=== PATIENT | male | born 1935 | race Caucasian/White ===

== ENCOUNTER 2022-08-31 17:13 | Observation (INO) | payer OTHER, MEDICARE, BC ==
--- NOTE | 2022-08-31 18:16 | ED ---
Recheck HPI - General Chief Complaint: Fall Stated Complaint: abnormal labs Time Seen by Provider: 08/31/22 18:15 Source: patient, RN notes reviewed, old records reviewed Mode of arrival: ambulatory Limitations: no limitations - History of Present Illness Initial Comments: This is an 87-year-old male to the emergency department for evaluation patient presents today for evaluation of back pain severe back pain that started a few weeks ago with a fall recently evaluation with computed tomography scan and sent DF for evaluation regarding findings outside computed tomography scan. Patient is no loss of bowel or bladder. Pain is worse with ambulation. MD Complaint: abnormal lab -: hour(s) Returns Today for: Called Because of Abnormal Lab/Test, persistent/worsening pain related to initial visit Symptoms Since Prior Visit: no new symptoms, worsening pain Associated Symptoms: none Treatments Prior to Arrival: Given Pain Meds on - Related Data Home Medications Medication Instructions Recorded Confirmed Acetaminophen Tab [Tylenol] 650 mg PO Q4H PRN 08/31/22 08/31/22 Amiodarone [Cordarone] 200 mg PO DAILY 08/31/22 08/31/22 Ascorbic Acid [Vitamin C] 500 mg PO DAILY 08/31/22 08/31/22 Aspirin EC [Ecotrin Low Dose] 81 mg PO DAILY 08/31/22 08/31/22 Atorvastatin [Lipitor] 80 mg PO DAILY 08/31/22 08/31/22 Budesonide [Pulmicort Flexhaler] 2 puff INHALATION RT-BID 08/31/22 08/31/22 Cholecalciferol [Vitamin D3 (25 25 mcg PO DAILY 08/31/22 08/31/22 Mcg = 1000 Iu)] Furosemide [Lasix] 60 mg PO AC-BRKFST 08/31/22 08/31/22 Isosorbide Mononitrate ER [Imdur] 30 mg PO DAILY 08/31/22 08/31/22 Levalbuterol Hfa Inhaler [Xopenex 2 puff INHALATION RT-Q8H PRN 08/31/22 08/31/22 Hfa Inhaler] Levothyroxine Sodium [Synthroid] 50 mcg PO DAILY 08/31/22 08/31/22 Loratadine [Claritin] 10 mg PO DAILY 08/31/22 08/31/22 Metoprolol Tartrate [Lopressor] 12.5 mg PO BID 08/31/22 08/31/22 Multivit-Mins/Iron/Folic/Lycop 1 tab PO DAILY 08/31/22 08/31/22 [Centrum Men's Tablet] Nitroglycerin Sl Tabs [Nitrostat] 0.4 mg SUBLINGUAL Q5M PRN 08/31/22 08/31/22 Pantoprazole Sodium [Protonix] 40 mg PO DAILY 08/31/22 08/31/22 Potassium Chloride ER [K-Dur 20] 20 meq PO DAILY 08/31/22 08/31/22 Ranolazine [Ranexa] 500 mg PO BID 08/31/22 08/31/22 Sennosides/Docusate Sodium 1 tab PO BID 08/31/22 08/31/22 [Senna-S 8.6-50 mg Tablet] Tamsulosin HCl [Flomax] 0.4 mg PO DAILY 08/31/22 08/31/22 Zolpidem [Ambien] 10 mg PO HS PRN 08/31/22 08/31/22 Allergies Allergy/AdvReac Type Severity Reaction Status Date / Time No Known Allergies Allergy Verified 08/31/22 19:49 Review of Systems ROS Statement: Those systems with pertinent positive or pertinent negative responses have been documented in the HPI. ROS Other: All systems not noted in ROS Statement are negative. Past Medical History Past Medical History: Coronary Artery Disease (CAD) History of Any Multi-Drug Resistant Organisms: None Reported Past Surgical History: Coronary Bypass/CABG, Heart Catheterization With Stent, Pacemaker Additional Past Surgical History / Comment(s): heart valve replacemnt Past Psychological History: No Psychological Hx Reported Past Alcohol Use History: Rare Past Drug Use History: None Reported General Exam Limitations: no limitations General appearance: alert, in no apparent distress Head exam: Present: atraumatic, normocephalic, normal inspection Eye exam: Present: normal appearance, PERRL, EOMI. Absent: scleral icterus, conjunctival injection, periorbital swelling ENT exam: Present: normal exam, mucous membranes moist Neck exam: Present: normal inspection. Absent: tenderness, meningismus, lymphadenopathy Respiratory exam: Present: normal lung sounds bilaterally. Absent: respiratory distress, wheezes, rales, rhonchi, stridor Cardiovascular Exam: Present: regular rate, normal rhythm, normal heart sounds. Absent: systolic murmur, diastolic murmur, rubs, gallop, clicks GI/Abdominal exam: Present: soft, normal bowel sounds. Absent: distended, tenderness, guarding, rebound, rigid Extremities exam: Present: normal inspection, full ROM, normal capillary refill. Absent: tenderness, pedal edema, joint swelling, calf tenderness Back exam: Present: normal inspection Neurological exam: Present: alert, oriented X3, CN II-XII intact Psychiatric exam: Present: normal affect, normal mood Skin exam: Present: warm, dry, intact, normal color. Absent: rash Course Vital Signs 08/31/22 08/31/22 17:55 20:02 Temperature 97.3 F L Pulse Rate 77 72 Respiratory 20 Rate Blood Pressure 115/61 121/65 O2 Sat by Pulse 94 L 95 Oximetry - Reevaluation(s) Reevaluation #1: 08/31/22 18:58 medical record is reviewed Reevaluation #2: 08/31/22 18:58 patients pain is controlled Reevaluation #3: 08/31/22 18:58 patient informed of results and questions answered Reevaluation #4: 08/31/22 18:58 Was pt. sent in by a medical professional or institution? @ -no Did you speak to anyone other than the patient for history? @ -no Did you review nursing and triage notes? @ -agree Were old charts reviewed? @ -no Differential Diagnosis? @ -prior EKG interpreted by me (3pts min.)? @ -yes X-rays interpreted by me (1pt min.)? @ -no CT interpreted by me (1pt min.)? @ -no U/S interpreted by me (1pt. min.)? @ -no What testing was considered but not performed? (CT, X-rays, U/S, labs)? Why? @ -no What meds were considered but not given? Why? @ -no Did you discuss the management of the patient with other professionals? @ -no Did you reconcile home meds? @ -no Was smoking cessation discussed for >3mins.? @ -no Was critical care preformed (if so, how long)? @ -no Were there social determinants of health that impacted care today? How? (Homelessness, low income, unemployed, alcoholism, drug addiction, transportation, low edu. Level, literacy, decrease access to med. care, halfway, rehab)? @ -no Was there de-escalation of care discussed even if they declined? (Discuss DNR or withdrawal of care, Hospice)? @ -no What co-morbidities impacted this encounter? (DM, HTN, Smoking, COPD, CAD, Cance r, CVA, Hep., AIDS, mental health diagnosis, sleep apnea, morbid obesity)? @ -none Was patient admitted / discharged? @ - Undiagnosed new problem with uncertain prognosis? @ -no Drug Therapy requiring intensive monitoring for toxicity (Heparin, Nitro, Insulin, Cardizem)? @ -no Were any procedures done? @ -no Diagnosis/symptom? @ - Acute, or Chronic, or Acute on Chronic? @ -no Uncomplicated (without systemic symptoms) or Complicated (systemic symptoms)? @ -uncomplicated Side effects of treatment? @ -no Exacerbation, Progression, or Severe Exacerbation] @ -no Poses a threat to life or bodily function? @ -no Reevaluation #5: 08/31/22 18:58 Differential Back Pain: Strain, zoster, cauda equina syndrome, epidural abscess, vertebral osteomy elitis, discitis, fracture, subluxation, disc herniation, DJD, spinal stenosis, dissection, AAA, pancreatitis, peptic ulcer disease, pyelonephritis, kidney stone, this is not meant to be an all-inclusive list. Medical Decision Making - Medical Decision Making 87 male presents today for evaluation of fall fall with back pain per patient he may have fracture lumbar sacral fracture and presents for evaluation by orthopedics for fracture and persistent pain. - Lab Data Result diagrams: 08/31/22 19:35 08/31/22 19:35 - EKG Data -: EKG Interpreted by Me (EKG is uncertain 75 QRS 105 QTC 504) Disposition Clinical Impression: Back pain, Chronic back pain, Lumbar compression fracture Disposition: ADMITTED IP TO THIS [facility] Condition: Good Is patient prescribed a controlled substance at d/c from ED?: No Time of Disposition: 19:00
[2022-08-31] MEDS ORDERED: SODIUM CHLORIDE 0.9% 1,000 ML IV STA (18:54)
[2022-08-31] MEDS ORDERED: ONDANSETRON 4 MG/2 ML VIAL IVP PRN (18:54)
[2022-08-31] MEDS ORDERED: NALOXONE 0.4 MG/ML 1 ML VIAL IV PRN (18:54)
[2022-08-31] MEDS ORDERED: KETOROLAC 15 MG/ML 1 ML VIAL IVP STA (18:54)
[2022-08-31] MEDS ORDERED: MORPHINE SULFATE 4 MG/ML SYRINGE IV PRN (18:54)
[2022-08-31] MEDS ORDERED: MORPHINE SULFATE 4 MG/ML SYRINGE IV STA (18:54)
[2022-08-31 19:54] LABS: Basophils % (A) 1 %; Eosinophils # (A) 0.1 k/uL (0-0.7); Eosinophils % (A) 2 %; HCT 39.5 % (39.0-53.0); HGB 12.6 gm/dL (13.0-17.5); Hypochromasia Slight; Lymphocytes # (A) 0.8 k/uL (1.0-4.8); Lymphocytes % (A) 15 %; MCH 33.3 pg (25.0-35.0); MCHC 31.9 g/dL (31.0-37.0); MCV 104.3 fL (80.0-100.0); Macrocytosis Moderate; Mean Platelet Volume 7.4; Monocytes # (A) 0.5 k/uL (0-1.0); Monocytes % (A) 10 %; Neutrophils # (A) 3.6 k/uL (1.3-7.7); Neutrophils % (A) 71 %; Platelet Count 199 k/uL (150-450); RBC 3.79 m/uL (4.30-5.90); RDW 15.1 % (11.5-15.5); WBC 5.1 k/uL (3.8-10.6)
[2022-08-31] MEDS: SODIUM CHLORIDE 0.9% 1,000 ML IV SCH (20:04)
[2022-08-31 20:06] LABS: ALT 29 U/L (4-49); AST 35 U/L (17-59); African American GFR (CKD) >90 (>60 ml/min/1.73 sqM); Albumin 3.5 g/dL (3.5-5.0); Alkaline Phosphatase 154 U/L (38-126); Anion Gap 6 mmol/L; Blood Urea Nitrogen 16 mg/dL (9-20); Calcium 8.6 mg/dL (8.4-10.2); Carbon Dioxide 31 mmol/L (22-30); Chloride 102 mmol/L (98-107); Glucose 99 mg/dL (74-99); Non-African American GFR(CKD) 80 (>60 ml/min/1.73 sqM); Phosphorus 3.8 mg/dL (2.5-4.5); Potassium 4.1 mmol/L (3.5-5.1); Sodium 139 mmol/L (137-145); Total Protein 6.7 g/dL (6.3-8.2)
[2022-08-31 20:24] LABS: INR 1.1 (<1.2); Partial Thromboplastin Time 24.5 sec (22.0-30.0); Prothrombin Time 11.7 sec (9.0-12.0)
[2022-08-31] MEDS ORDERED: NITROGLYCERIN SL TABS 0.4 MG TAB SUBLINGUAL PRN (21:44)
[2022-08-31] MEDS ORDERED: ALBUTEROL NEBULIZED 2.5 MG/3 ML INHALATION PRN (21:44)
[2022-08-31] MEDS ORDERED: ACETAMINOPHEN TAB 325 MG TAB PO PRN (21:48)
[2022-08-31] MEDS: KETOROLAC 15 MG/ML 1 ML VIAL IVP SCH (23:27)
[2022-09-01] MEDS: KETOROLAC 15 MG/ML 1 ML VIAL IVP SCH ×3 (06:09→17:27)
[2022-09-01] MEDS ORDERED: LEVOTHYROXINE 50 MCG TAB PO SCH (06:30)
[2022-09-01] MEDS ORDERED: PANTOPRAZOLE 40 MG TABLET PO SCH (07:30)
[2022-09-01] MEDS: FLUTICASONE 110 MCG INHALER INHALATION SCH ×2 (07:32→21:39)
[2022-09-01] MEDS: SODIUM CHLORIDE 0.9% 1,000 ML IV SCH (08:40)
[2022-09-01] MEDS ORDERED: ASCORBIC ACID 500 MG TAB PO SCH (09:00)
[2022-09-01] MEDS ORDERED: RANOLAZINE 500 MG TAB.ER.12H PO SCH (09:00)
[2022-09-01] MEDS ORDERED: CHOLECALCIFEROL 25 MCG (1000 IU) TABLET PO SCH (09:00)
[2022-09-01] MEDS ORDERED: TAMSULOSIN 0.4 MG CAP.ER.24H PO SCH (09:00)
[2022-09-01] MEDS ORDERED: MULTIVITAMINS, THERA 1 EACH TAB PO SCH (09:00)
[2022-09-01] MEDS ORDERED: AMIODARONE 200 MG TAB PO SCH (09:00)
[2022-09-01] MEDS ORDERED: SENNOSIDES-DOCUSATE SODIUM 1 EACH TAB PO SCH (09:00)
[2022-09-01] MEDS ORDERED: METOPROLOL TARTRATE 12.5 MG TAB PO SCH (09:00)
[2022-09-01] MEDS ORDERED: LORATADINE 10 MG TAB PO SCH (09:00)
[2022-09-01] MEDS ORDERED: ASPIRIN 81 MG PO SCH (09:00)
[2022-09-01] MEDS ORDERED: ISOSORBIDE MONONITRATE ER 30 MG TAB.ER.24H PO SCH (09:00)
[2022-09-01] MEDS ORDERED: ATORVASTATIN 80 MG TAB PO SCH (09:00)
--- NOTE | 2022-09-01 09:13 | P.CNOR ---
History of Present Illness - [facility] Consult date: 09/01/22 Consult reason: low back pain History of present illness: The patient is seen and examined at bedside. He is a very pleasant 87-year-old male who lives on his own with his son right next or checks in on him daily. The patient just returned back from [place] but when he went to take a shower about 4 weeks ago he had a fall and had sudden acute pain at his lower back. The pain has persisted and feels though it had gotten worse and presented to the hospital. He underwent imaging last week at [facility]. He was found to have evidence of a compression deformity and was sent into the hospital. The patient is not having any lower extremity numbness tingling. He is not having change in bowel bladder function. He says the pain is primarily at the midline of his lumbosacral junction and across his lower back. It is particularly bad when he changed physicians and try to sit up at the side of the bed. He is not having pain when seated or when lying down. He denies pain with coughing or sneezing. He denies problems with his back in the past. He says he does have some soreness at his legs when he tries to stand up and walk for significant period time. He denies any new weakness Review of Systems Denies chest pain shortness breath. Denies nausea or vomiting. Denies any fevers chills. He admits to fall several weeks ago. He says he normally gets around home well uses a walker to help get around. He lives on his own at home and feels that he is able to take care of the house but he has family very close by who visits him each day. Past Medical History Past Medical History: Coronary Artery Disease (CAD) Additional Past Medical History / Comment(s): Status post fall about 4 weeks ago with new back pain History of Any Multi-Drug Resistant Organisms: None Reported Past Surgical History: Coronary Bypass/CABG, Heart Catheterization With Stent, Pacemaker Additional Past Surgical History / Comment(s): heart valve replacemnt Date of Last Stent Placement:: n/a Type of Cardiac Device: Permanent Pacemaker Device Placement Date:: n/a Past Psychological History: No Psychological Hx Reported Past Alcohol Use History: Rare Past Drug Use History: None Reported Medications and Allergies Home Medications Medication Instructions Recorded Confirmed Type Acetaminophen Tab [Tylenol] 650 mg PO Q4H PRN 08/31/22 08/31/22 History Amiodarone [Cordarone] 200 mg PO DAILY 08/31/22 08/31/22 History Ascorbic Acid [Vitamin C] 500 mg PO DAILY 08/31/22 08/31/22 History Aspirin EC [Ecotrin Low Dose] 81 mg PO DAILY 08/31/22 08/31/22 History Atorvastatin [Lipitor] 80 mg PO DAILY 08/31/22 08/31/22 History Budesonide [Pulmicort Flexhaler] 2 puff INHALATION RT-BID 08/31/22 08/31/22 History Cholecalciferol [Vitamin D3 (25 25 mcg PO DAILY 08/31/22 08/31/22 History Mcg = 1000 Iu)] Furosemide [Lasix] 60 mg PO AC-BRKFST 08/31/22 08/31/22 History Isosorbide Mononitrate ER [Imdur] 30 mg PO DAILY 08/31/22 08/31/22 History Levalbuterol Hfa Inhaler [Xopenex 2 puff INHALATION RT-Q8H PRN 08/31/22 08/31/22 History Hfa Inhaler] Levothyroxine Sodium [Synthroid] 50 mcg PO DAILY 08/31/22 08/31/22 History Loratadine [Claritin] 10 mg PO DAILY 08/31/22 08/31/22 History Metoprolol Tartrate [Lopressor] 12.5 mg PO BID 08/31/22 08/31/22 History Multivit-Mins/Iron/Folic/Lycop 1 tab PO DAILY 08/31/22 08/31/22 History [Centrum Men's Tablet] Nitroglycerin Sl Tabs [Nitrostat] 0.4 mg SUBLINGUAL Q5M PRN 08/31/22 08/31/22 History Pantoprazole Sodium [Protonix] 40 mg PO DAILY 08/31/22 08/31/22 History Potassium Chloride ER [K-Dur 20] 20 meq PO DAILY 08/31/22 08/31/22 History Ranolazine [Ranexa] 500 mg PO BID 08/31/22 08/31/22 History Sennosides/Docusate Sodium 1 tab PO BID 08/31/22 08/31/22 History [Senna-S 8.6-50 mg Tablet] Tamsulosin HCl [Flomax] 0.4 mg PO DAILY 08/31/22 08/31/22 History Zolpidem [Ambien] 10 mg PO HS PRN 08/31/22 08/31/22 History Allergies Allergy/AdvReac Type Severity Reaction Status Date / Time No Known Allergies Allergy Verified 08/31/22 19:49 Physical Examination Osteopathic Statement: *. No significant issues noted on an osteopathic structural exam other than those noted in the History and Physical/Consult. - L Spine: dermatomal strength & reflexes bilateral Strength: hip flexion: 5/5 (He has bruising over his pelvis toward left. There is open area of burn about 3 x 3 cm from a heating pad. There is no erythema there is no drainage.) left Strength: hip flexion: 5/5 (His lower extremities have 5 out of 5 strength throughout. No pain with internal rotation is hips. Thighs Soft nontender. There is ecchymosis over his left gluteal area.) Results - Labs Labs: Abnormal Lab Results - Last 24 Hours (Table) 08/31/22 08/31/22 Range/Units 19:35 19:35 RBC 3.79 L (4.30-5.90) m/uL Hgb 12.6 L (13.0-17.5) gm/dL MCV 104.3 H (80.0-100.0) fL Lymphocytes # 0.8 L (1.0-4.8) k/uL Carbon Dioxide 31 H (22-30) mmol/L Alkaline Phosphatase 154 H (38-126) U/L H & H 08/31/22 Range/Units 19:35 Hgb 12.6 L (13.0-17.5) gm/dL Hct 39.5 (39.0-53.0) % Coagulation 08/31/22 Range/Units 19:35 INR 1.1 (<1.2) Result Diagrams: 08/31/22 19:35 08/31/22 19:35 - Diagnostic results CT Scan - lumbar: report reviewed (I do not have the report available. There is evidence of severe central and bilateral foraminal stenosis L3 4 L4 5 with facet arthrosis.), image reviewed (Computed tomography scan from 08/24/2022 at [facility] shows his lumbar spine with evidence of compression deformity at L5. There is some lumbarization of S1. There is fracture line at the superior endplate and about 10% height loss. There is some evidence of significant central bilateral for) Assessment and Plan Assessment: Subacute low back pain L4 5 compression fracture with about 10% height loss due to a traumatic fall about 4 weeks ago Spinal stenosis L3 4 L4 5 Difficulty ambulating and mobilizing Superficial burn due to a heating pad at the left lower back Ecchymosis over the gluteal area Plan: Subacute low back pain L5 compression fracture with about 10% height loss due to a traumatic fall about 4 weeks ago Spinal stenosis L3 4 L4 5 Difficulty ambulating and mobilizing Superficial burn due to a heating pad at the left lower back Ecchymosis over the gluteal area The patient has new low back pain due to compression fracture L4. This has made it difficult for him to mobilize and ambulate. The fracture does not appear to be causing any new neurologic change or neurologic deficit. He does have evidence of significant central and bilateral foraminal stenosis at L3 4 and L4 5 which is chronic for him. It had previously been minimally symptomatic although I think the fall and his new injury has exacerbated some of the arthritic and chronic changes to become somewhat symptomatic from his stenosis. We discussed this with him today length and discuss it with his son over the phone at bedside. I think that we need to manage the fracture currently to allow to stabilize before we can address the issues of stenosis. He is not having neurologic F sit or neurologic change. I discussed the different treatment options in regards to his L5 compression fracture. I think that he can do well with an LSO brace for his lower back and continue mobilization with therapy. He may do well with some pain control as well. If he is not doing well with conservative treatment and bracing I did discuss the possibility of kyphoplasty. For now we will like to try to avoid surgical intervention as he does have a open sore at his lower back and with his advanced age. Try to avoid surgical intervention if possible. Kyphoplasty could be an option if he is not having significant improvement, but we'll initiate dedicated conservative treatment at this point and see how he does. We will continue to follow him along with you. I will order an LSO brace and pain control for him. We will also have therapy work with him for mobilization and assess his home situation with case management for potential discharge if his pain is controlled. Time with Patient: Greater than 30
[2022-09-01] MEDS ORDERED: traMADol 50 MG TAB PO PRN (09:15)
[2022-09-01 10:29] LABS: Amorphous Sediment,Urine Rare /hpf; Appearance,Urine Cloudy (Clear); Bilirubin,Urine Negative (Negative); Blood,Urine Negative (Negative); Color,Urine Dark Brown; Glucose,Urine (UA) Negative (Negative); Hyaline Casts,Urine 4 /lpf (0-2); Ketones,Urine Negative (Negative); Leukocyte Esterase,Urine Negative (Negative); Mucus,Urine Many /hpf; Nitrite,Urine Negative (Negative); Protein,Urine 1+ (Negative); RBC,Urine 3 /hpf (0-5); Specific Gravity,Urine 1.031 (1.001-1.035); Urobilinogen,Urine <2.0 mg/dL (<2.0); WBC,Urine 4 /hpf (0-5)
--- NOTE | 2022-09-01 12:04 | P.HPIM ---
History of Present Illness 87-year-old male came in with the sudden onset of lower back pain and the patient is found to have compression of lumbar vertebrae denied any lower extremity weakness or tingling numbness. Patient is on scheduled Toradol with which his symptoms are improved. Patient was evaluated by orthopedic surgery and recommended TLSO brace and if his pain is controlled on tramadol, patient can be discharged. She apparently has history of congestive heart failure Lasix with borderline blood pressure and normal kidney function. REVIEW OF SYSTEMS: CONSTITUTIONAL: No fever, no malaise, no fatigue. HEENT: No recent visual problems or hearing problems. Denied any sore throat. CARDIOVASCULAR: No chest pain, orthopnea, PND, no palpitations, no syncope. PULMONARY: No shortness of breath, no cough, no hemoptysis. GASTROINTESTINAL: No diarrhea, no nausea, no vomiting, no abdominal pain. NEUROLOGICAL: No headaches, no weakness, no numbness. HEMATOLOGICAL: Denies any bleeding or petechiae. GENITOURINARY: Denies any burning micturition, frequency, or urgency. MUSCULOSKELETAL/RHEUMATOLOGICAL: As mentioned above ENDOCRINE: Denies any polyuria or polydipsia. The rest of the 14-point review of systems is negative. PHYSICAL EXAMINATION: GENERAL: The patient is alert and oriented x3, not in any acute distress. Well developed, well nourished. HEENT: Pupils are round and equally reacting to light. EOMI. No scleral icterus. No conjunctival pallor. Normocephalic, atraumatic. No pharyngeal erythema. No thyromegaly. CARDIOVASCULAR: S1 and S2 present. No murmurs, rubs, or gallops. PULMONARY: Chest is clear to auscultation, no wheezing or crackles. ABDOMEN: Soft, nontender, nondistended, normoactive bowel sounds. No palpable organomegaly. MUSCULOSKELETAL: No joint swelling or deformity. EXTREMITIES: No cyanosis, clubbing, or pedal edema. NEUROLOGICAL: Gross neurological examination did not reveal any focal deficits. SKIN: No rashes. Assessment and plan -Compression fracture: TLSO brace, tramadol, meloxicam as needed possibly of discharge with outpatient physical therapy -Coronary artery disease -Possible congestive heart failure although no echocardiogram is available unknown whether patient has systolic dysfunction and diastolic dysfunction presently not in acute exacerbation, patient will be continued on his home medications although his blood pressures are fairly borderline and there is a concern for falls -History of valvular heart disease Benign prostatic hypertrophy -Hyperlipidemia -Hypothyroidism -Possible history of atrial fibrillation presently sinus rhythm, not on anticoagulation because of fall risk Possibility of discharge today Past Medical History Past Medical History: Coronary Artery Disease (CAD) Additional Past Medical History / Comment(s): Status post fall about 4 weeks ago with new back pain History of Any Multi-Drug Resistant Organisms: None Reported Past Surgical History: Coronary Bypass/CABG, Heart Catheterization With Stent, Pacemaker Additional Past Surgical History / Comment(s): heart valve replacemnt Date of Last Stent Placement:: n/a Type of Cardiac Device: Permanent Pacemaker Device Placement Date:: n/a Past Psychological History: No Psychological Hx Reported Past Alcohol Use History: Rare Past Drug Use History: None Reported Medications and Allergies Home Medications Medication Instructions Recorded Confirmed Type Acetaminophen Tab [Tylenol] 650 mg PO Q4H PRN 08/31/22 08/31/22 History Amiodarone [Cordarone] 200 mg PO DAILY 08/31/22 08/31/22 History Ascorbic Acid [Vitamin C] 500 mg PO DAILY 08/31/22 08/31/22 History Aspirin EC [Ecotrin Low Dose] 81 mg PO DAILY 08/31/22 08/31/22 History Atorvastatin [Lipitor] 80 mg PO DAILY 08/31/22 08/31/22 History Budesonide [Pulmicort Flexhaler] 2 puff INHALATION RT-BID 08/31/22 08/31/22 History Cholecalciferol [Vitamin D3 (25 25 mcg PO DAILY 08/31/22 08/31/22 History Mcg = 1000 Iu)] Furosemide [Lasix] 60 mg PO AC-BRKFST 08/31/22 08/31/22 History Isosorbide Mononitrate ER [Imdur] 30 mg PO DAILY 08/31/22 08/31/22 History Levalbuterol Hfa Inhaler [Xopenex 2 puff INHALATION RT-Q8H PRN 08/31/22 08/31/22 History Hfa Inhaler] Levothyroxine Sodium [Synthroid] 50 mcg PO DAILY 08/31/22 08/31/22 History Loratadine [Claritin] 10 mg PO DAILY 08/31/22 08/31/22 History Metoprolol Tartrate [Lopressor] 12.5 mg PO BID 08/31/22 08/31/22 History Multivit-Mins/Iron/Folic/Lycop 1 tab PO DAILY 08/31/22 08/31/22 History [Centrum Men's Tablet] Nitroglycerin Sl Tabs [Nitrostat] 0.4 mg SUBLINGUAL Q5M PRN 08/31/22 08/31/22 History Pantoprazole Sodium [Protonix] 40 mg PO DAILY 08/31/22 08/31/22 History Potassium Chloride ER [K-Dur 20] 20 meq PO DAILY 08/31/22 08/31/22 History Ranolazine [Ranexa] 500 mg PO BID 08/31/22 08/31/22 History Sennosides/Docusate Sodium 1 tab PO BID 08/31/22 08/31/22 History [Senna-S 8.6-50 mg Tablet] Tamsulosin HCl [Flomax] 0.4 mg PO DAILY 08/31/22 08/31/22 History Zolpidem [Ambien] 10 mg PO HS PRN 08/31/22 08/31/22 History Meloxicam [Mobic] 15 mg PO DAILY PRN #30 tab 09/01/22 Rx traMADol HCl [Ultram] 50 mg PO Q6HR PRN 3 Days #12 tab 09/01/22 Rx Allergies Allergy/AdvReac Type Severity Reaction Status Date / Time No Known Allergies Allergy Verified 08/31/22 19:49 Physical Exam Vitals: Vital Signs Temp Pulse Pulse Resp BP BP Pulse Ox 09/01/22 07:00 97.6 F 66 14 106/54 93 L 09/01/22 03:10 97.8 F 70 16 95/55 94 L 09/01/22 02:00 78 18 08/31/22 22:05 97.5 F L 78 18 135/70 97 08/31/22 20:02 72 121/65 95 08/31/22 17:55 97.3 F L 77 20 115/61 94 L Intake and Output 08/31/22 09/01/22 09/01/22 22:59 06:59 14:59 Intake Total 118 Balance 118 Intake: Oral 118 Other: # Voids 1 Weight 95.254 kg Results CBC & Chem 7: 08/31/22 19:35 08/31/22 19:35 Labs: Abnormal Lab Results - Last 24 Hours (Table) 08/31/22 08/31/22 09/01/22 Range/Units 19:35 19:35 10:10 RBC 3.79 L (4.30-5.90) m/uL Hgb 12.6 L (13.0-17.5) gm/dL MCV 104.3 H (80.0-100.0) fL Lymphocytes # 0.8 L (1.0-4.8) k/uL Carbon Dioxide 31 H (22-30) mmol/L Alkaline Phosphatase 154 H (38-126) U/L Urine Protein 1+ H (Negative) Amorphous Sediment Rare H (None) /hpf Hyaline Casts 4 H (0-2) /lpf Urine Mucus Many H (None) /hpf Thrombosis Risk Factor Assmnt - Choose All That Apply Any of the Below Risk Factors Present?: Yes Each Factor Represents 1 point: Obesity (BMI >25) Other Risk Factors: Yes Each Risk Factor Represents 3 Points: Age 75 years or older Other congenital or acquired thrombophilia - If yes, enter type in comment: No Thrombosis Risk Factor Assessment Total Risk Factor Score: 4 Thrombosis Risk Factor Assessment Level: Moderate Risk
--- NOTE | 2022-09-01 12:04 | P.DS ---
Providers Date of admission: 08/31/22 18:57 Attending physician: Yael Potter Consults: 08/31/22 18:54 Consult Physician Routine Consulting Provider: Branden Fields Consult Reason/Comments: backPain Do you want consulting provider notified?: Yes Primary care physician: [facility] Course: 87-year-old male came in with the sudden onset of lower back pain and the patient is found to have compression of lumbar vertebrae denied any lower extremity weakness or tingling numbness. Patient is on scheduled Toradol with which his symptoms are improved. Patient was evaluated by orthopedic surgery and recommended TLSO brace and if his pain is controlled on tramadol, patient can be discharged. She apparently has history of congestive heart failure Lasix with borderline blood pressure and normal kidney function. REVIEW OF SYSTEMS: CONSTITUTIONAL: No fever, no malaise, no fatigue. HEENT: No recent visual problems or hearing problems. Denied any sore throat. CARDIOVASCULAR: No chest pain, orthopnea, PND, no palpitations, no syncope. PULMONARY: No shortness of breath, no cough, no hemoptysis. GASTROINTESTINAL: No diarrhea, no nausea, no vomiting, no abdominal pain. NEUROLOGICAL: No headaches, no weakness, no numbness. HEMATOLOGICAL: Denies any bleeding or petechiae. GENITOURINARY: Denies any burning micturition, frequency, or urgency. MUSCULOSKELETAL/RHEUMATOLOGICAL: As mentioned above ENDOCRINE: Denies any polyuria or polydipsia. The rest of the 14-point review of systems is negative. PHYSICAL EXAMINATION: GENERAL: The patient is alert and oriented x3, not in any acute distress. Well developed, well nourished. HEENT: Pupils are round and equally reacting to light. EOMI. No scleral icterus. No conjunctival pallor. Normocephalic, atraumatic. No pharyngeal erythema. No thyromegaly. CARDIOVASCULAR: S1 and S2 present. No murmurs, rubs, or gallops. PULMONARY: Chest is clear to auscultation, no wheezing or crackles. ABDOMEN: Soft, nontender, nondistended, normoactive bowel sounds. No palpable organomegaly. MUSCULOSKELETAL: No joint swelling or deformity. EXTREMITIES: No cyanosis, clubbing, or pedal edema. NEUROLOGICAL: Gross neurological examination did not reveal any focal deficits. SKIN: No rashes. Assessment and plan -Compression fracture: TLSO brace, tramadol, meloxicam as needed possibly of discharge with outpatient physical therapy -Coronary artery disease -Possible congestive heart failure although no echocardiogram is available unknown whether patient has systolic dysfunction and diastolic dysfunction presently not in acute exacerbation, patient will be continued on his home medications although his blood pressures are fairly borderline and there is a concern for falls -History of valvular heart disease Benign prostatic hypertrophy -Hyperlipidemia -Hypothyroidism -Possible history of atrial fibrillation presently sinus rhythm, not on anticoagulation because of fall risk Possibility of discharge today Patient Condition at Discharge: Good Plan - Discharge Summary Discharge Rx Participant: No New Discharge Prescriptions: New traMADol HCl [Ultram] 50 mg PO Q6HR PRN 3 Days #12 tab PRN Reason: Pain Meloxicam [Mobic] 15 mg PO DAILY PRN #30 tab PRN Reason: Pain Continue Acetaminophen Tab [Tylenol] 650 mg PO Q4H PRN PRN Reason: Fever And/ Or Pain Amiodarone [Cordarone] 200 mg PO DAILY Ascorbic Acid [Vitamin C] 500 mg PO DAILY Aspirin EC [Ecotrin Low Dose] 81 mg PO DAILY Budesonide [Pulmicort Flexhaler] 2 puff INHALATION RT-BID Cholecalciferol [Vitamin D3 (25 Mcg = 1000 Iu)] 25 mcg PO DAILY Furosemide [Lasix] 60 mg PO AC-BRKFST Levalbuterol Hfa Inhaler [Xopenex Hfa Inhaler] 2 puff INHALATION RT-Q8H PRN PRN Reason: Shortness Of Breath Metoprolol Tartrate [Lopressor] 12.5 mg PO BID Multivit-Mins/Iron/Folic/Lycop [Centrum Men's Tablet] 1 tab PO DAILY Pantoprazole Sodium [Protonix] 40 mg PO DAILY Sennosides/Docusate Sodium [Senna-S 8.6-50 mg Tablet] 1 tab PO BID Tamsulosin HCl [Flomax] 0.4 mg PO DAILY Atorvastatin [Lipitor] 80 mg PO DAILY Isosorbide Mononitrate ER [Imdur] 30 mg PO DAILY Levothyroxine Sodium [Synthroid] 50 mcg PO DAILY Loratadine [Claritin] 10 mg PO DAILY Nitroglycerin Sl Tabs [Nitrostat] 0.4 mg SUBLINGUAL Q5M PRN PRN Reason: Chest Pain Potassium Chloride ER [K-Dur 20] 20 meq PO DAILY Ranolazine [Ranexa] 500 mg PO BID Discontinued Zolpidem [Ambien] 10 mg PO HS PRN PRN Reason: Insomnia Discharge Medication List Acetaminophen Tab [Tylenol] 650 mg PO Q4H PRN 08/31/22 [History] Amiodarone [Cordarone] 200 mg PO DAILY 08/31/22 [History] Ascorbic Acid [Vitamin C] 500 mg PO DAILY 08/31/22 [History] Aspirin EC [Ecotrin Low Dose] 81 mg PO DAILY 08/31/22 [History] Atorvastatin [Lipitor] 80 mg PO DAILY 08/31/22 [History] Budesonide [Pulmicort Flexhaler] 2 puff INHALATION RT-BID 08/31/22 [History] Cholecalciferol [Vitamin D3 (25 Mcg = 1000 Iu)] 25 mcg PO DAILY 08/31/22 [History] Furosemide [Lasix] 60 mg PO AC-BRKFST 08/31/22 [History] Isosorbide Mononitrate ER [Imdur] 30 mg PO DAILY 08/31/22 [History] Levalbuterol Hfa Inhaler [Xopenex Hfa Inhaler] 2 puff INHALATION RT-Q8H PRN 08/31/22 [History] Levothyroxine Sodium [Synthroid] 50 mcg PO DAILY 08/31/22 [History] Loratadine [Claritin] 10 mg PO DAILY 08/31/22 [History] Metoprolol Tartrate [Lopressor] 12.5 mg PO BID 08/31/22 [History] Multivit-Mins/Iron/Folic/Lycop [Centrum Men's Tablet] 1 tab PO DAILY 08/31/22 [History] Nitroglycerin Sl Tabs [Nitrostat] 0.4 mg SUBLINGUAL Q5M PRN 08/31/22 [History] Pantoprazole Sodium [Protonix] 40 mg PO DAILY 08/31/22 [History] Potassium Chloride ER [K-Dur 20] 20 meq PO DAILY 08/31/22 [History] Ranolazine [Ranexa] 500 mg PO BID 08/31/22 [History] Sennosides/Docusate Sodium [Senna-S 8.6-50 mg Tablet] 1 tab PO BID 08/31/22 [History] Tamsulosin HCl [Flomax] 0.4 mg PO DAILY 08/31/22 [History] Meloxicam [Mobic] 15 mg PO DAILY PRN #30 tab 09/01/22 [Rx] traMADol HCl [Ultram] 50 mg PO Q6HR PRN 3 Days #12 tab 09/01/22 [Rx] Follow up Appointment(s)/Referral(s): Branden Fields, [Doctor of Osteopathic Medicine] - 2 Weeks (or sooner if patient is having any problems) None,Stated [REFERRING] - 1-2 days Activity/Diet/Wound Care/Special Instructions: LSO brace to be worn when patient is out of bed May remove in bed or may wear in bed if patient wishes May remove for bathing May ambulate as tolerated with brace on Avoid any heavy rigorous activity Avoid any repetitive bending Avoid lifting greater than 15 pounds No overhead work Discharge Disposition: HOME SELF-CARE
[2022-09-01 14:42] VITALS: BP 97/49; PULSE 64; RESP 16; TEMP 97.8
[2022-09-02] MEDS ORDERED: FUROSEMIDE 20 MG TAB PO SCH (07:30)
[2022-09-02] MEDS ORDERED: POTASSIUM CHLORIDE ER 20 MEQ TAB.ER PO SCH (09:00)
== END 2022-09-01 20:00 | disposition home health service (06) ==
LOC: EC 17:13 → 6NMEDSUR 18:57
PROVIDERS: ADMIT Hospitalist; ATTEND Hospitalist
DX: S32.009A Unspecified fracture of unspecified lumbar vertebra, initial encounter for closed fracture (principal); M48.061 Spinal stenosis, lumbar region without neurogenic claudication; W19.XXXA Unspecified fall, initial encounter; I50.9 Heart failure, unspecified; R03.0 Elevated blood-pressure reading, without diagnosis of hypertension; G89.29 Other chronic pain; I25.10 Atherosclerotic heart disease of native coronary artery without angina pectoris; E78.5 Hyperlipidemia, unspecified; E03.9 Hypothyroidism, unspecified; Z91.81 History of falling; N40.0 Benign prostatic hyperplasia without lower urinary tract symptoms; Z95.1 Presence of aortocoronary bypass graft; Z95.5 Presence of coronary angioplasty implant and graft; Z95.0 Presence of cardiac pacemaker; Z95.2 Presence of prosthetic heart valve; Z79.82 Long term (current) use of aspirin; Z79.899 Other long term (current) drug therapy; Z79.1 Long term (current) use of non-steroidal anti-inflammatories (NSAID); Z79.890 Hormone replacement therapy
CPT/HCPCS: 96374; 99285; 93005; 80053; 83735; 84100; 84484; 85025; 85610; 85730; 81001; G0378 ×2; J1885

== ENCOUNTER → 2022-11-02 | Outpatient (CLI) | payer OTHER, MEDICARE, BC ==
[2022-11-02 16:25] LABS: Partial Thromboplastin Time 25.3 sec (22.0-30.0); Prothrombin Time 10.9 sec (9.0-12.0)
[2022-11-02 19:57] LABS: Blood Urea Nitrogen 32.8 mg/dL (9.0-27.0); Carbon Dioxide 34.2 mmol/L (21.6-31.8); Chloride 90 mmol/L (96-109); Glucose 114 mg/dL (70-110); Magnesium 2.4 mg/dL (1.5-2.4); Potassium 3.1 mmol/L (3.5-5.5); Sodium 136 mmol/L (135-145)
[2022-11-03 02:04] LABS: Basophils # (A) 0.05 X 10*3/uL (0.00-0.10); Basophils % (A) 0.8 %; Eosinophils # (A) 0.06 X 10*3/uL (0.04-0.35); Eosinophils % (A) 0.9 %; HCT 43.5 % (39.6-50.0); HGB 14.9 d/dL (13.0-17.0); Lymphocytes # (A) 0.97 X 10*3/uL (0.90-5.00); Lymphocytes % (A) 14.9 %; MCH 32.4 pg (27.0-32.0); MCHC 34.3 d/dL (32.0-37.0); MCV 94.6 FL (80.0-97.0); Mean Platelet Volume 10.2 FL (9.5-12.2); Monocytes # (A) 0.74 X 10*3/uL (0.20-1.00); Monocytes % (A) 11.4 %; NRBC Per 100 WBC 0 X 10*3/uL (0.00-0.01); Neutrophils # (A) 4.66 X 10*3/uL (1.80-7.70); Neutrophils % (A) 71.5 %; Platelet Count 197 X 10*3/uL (140-440); RDW 14.5 % (11.5-14.5); WBC 6.51 X 10*3/uL (4.50-10.00)
== END | disposition home or self-care (01) ==
LOC: LABPAT 14:43
PROVIDERS: ATTEND Orthopaedic Surgery
DX: Z01.818 Encounter for other preprocedural examination (principal); M48.56XA Collapsed vertebra, not elsewhere classified, lumbar region, initial encounter for fracture; I49.8 Other specified cardiac arrhythmias; I45.10 Unspecified right bundle-branch block; R94.31 Abnormal electrocardiogram [ECG] [EKG]
CPT/HCPCS: 80051; 82565; 82947; 83735; 84520; 85025; 85610; 85730; 93005

== ENCOUNTER 2022-11-06 12:57 | Day surgery (SDC) | payer BC, MEDICARE, OTHER ==
--- NOTE | 2022-11-02 17:18 | P.HPOR ---
History of Present Illness H&P Date: 11/02/22 .D:Date: 11/02/22 : 01:30pm .T:Title: [facility] Date of :35 [id number]: NKDA Age: 87 year Height: 5'10" Weight: 182 lbs BMI: 26.11 kg/m2 Occupation: VAS: CHIEF COMPLAINT: Low back pain DOI: DOS: Duration of current treatment regiment: DEL * HISTORY: Xrays New xrays taken in office Trauma or injury No Work-Related No Pain description Dull & aching Location Diffuse Activity Modification Yes Hand Dominance Right TREATMENTS COMPLETED: 6 weeks of PT completed? Month and Year of last PT date? No Physician directed home exercise completed? No Medications Yes, List: Morris, Tramadol, Motrin, Gabapentin, Flexeril Alternative interventions Chiropractic: No Massage therapy:No R.I.C.E: YES Brace:YES LSO, Does not help Injections No RFA:No SUBJECTIVE: Mr. Rangel presents to the office for an evaluation of his low back pain and for surgicla discussion. He states pain in his back that is constant and not getting any better. He is with his son who states about 5 weeks ago he had a fall at home and has been in constant pain ever since. He was seen in ED up in [place] and they treated him with pain meds and an LSO brace which he has been wearing. He states when he sits his pain is a 4 and when he gets up or moves at all its 10/10. He states weakness and numbness in his legs as well which may or maynot be related. 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 But this has limited him extremly. He has tried Morris, Tramadol, Flexeril, Gabapentin without imrpvement. He would like to discuss surgical treatment as the brace is not helping him either. Otherwise the patient denies any f/c/sob/cp, no incision concerns, no bladder or bowel retention/incontinence, no perineal numbness/tingling, and ambulates independently. The patients' past social, medical, family, surgical history, as well as review of systems, have been reviewed. Please refer to the Neurosurgery History and Physical form that has been scanned in to our electronic medical record system. 14 points review of systems completed and as stated in HPI, all other systems reviewed are negative. Social History: Y7Hcraosp: never a smoker P3 Alcohol: none Family History: [id number]: P2 Father: Sibling(s): Past Medical History: Reviewed, see appropriate section of the chart for details. Past Surgical History: Reviewed, see appropriate section of the chart for details. Current Medications: Reviewed, see appropriate section of the chart for details. P1 PHYSICAL EXAMINATION: General: DEL Awake, alert, appropriate for age, in no acute distress. HEENT: DEL No unusual neck masses around region of lateral neck triangle, thyroid, supraclavicular groove Extremities: DELSkin warm and dry without acute lesions, coloration, temperature, skin intact, no tenderness or erythema * Integument: Hairy patches: DEL * ABSENT Dorsal skin dimples: DEL * ABSENT Cafe au lait spots: DEL * ABSENT Surgical incisions: DEL * NONE Palpation: Please see Pain drawing on Intake sheet for further detail. * Midline spinal tenderness: YES at L4 region E6 Cervical Tenderness: No E6 Paralumbar tenderness: YES E6 Parathoracic tenderness: No E6 Buttocks tenderness: No E6 Sacroilliac Tenderness: DEL YES No Laterality: DEL * POSTURAL and MUSCULO-SKELETAL EVALUATION: Coronal Balance: DEL * NEUTRAL Recumbent testing: DEL Patient is * able to lay flat on back Sagittal Balance: DEL * NEUTRAL Shoulder Profile: DEL * LEVEL Pelvic Girdle: DEL * LEVEL Neck ROM: DEL * UNRESTRICTED Lumbar ROM: DEL * RESTRICTED Shoulder ROM: DEL * Symmetrical Hip ROM: DEL * Symmetrical Knee ROM: DEL * Symmetrical Hands: DEL * Normal appearance, symmetrical Feet: DEL * Normal appearance, Symmetrical VASCULAR STATUS : LEFT RIGHT Wrist Pulses * INTACT * INTACT Pedal Pulses (Dors. pedis & post.tibialis) * INTACT * INTACT Color * NORMAL * NORMAL Edema Absent PRESENT Absent PRESENT NEUROLOGIC EXAMINATION: Mental Status:Awake and alert, fully oriented, with normal attention, concentration and memory, and fluent, appropriate speech. Cranial Nerves: I: Olfactory not tested. II: Visual acuity normal, no visual field deficit noted with confrontation. III,IV: Normal pupillary reflexes & intact extraocular movements without nystagmus. V,: Intact symmetrical facial sensation. VII: Intact symmetrical facial motor movement VIII: Hearing intact. IX,X: Intact gag, swallow, & normal voice. XI: Sternocleidomastoid, trapezius function intact. XII: Tongue midline with normal movements. L'hermitte's Sign: DEL Negative / absent Spurling'Sign: DEL Absent bilaterally. Cubital percussion test: DEL Absent bilaterally. Poe-Tinel sign - Carpal region: DEL Absent bilaterally. Straight Leg Raising: DEL Absent bilaterally. * Crossed straight leg raise: DEL negative positive O8 + test in affected leg while raising opposite leg, MORE SPECIFIC than regular straight leg raise MOTOR EXAM (0-5/5, N/T Muscle appearance: DEL *Symmetrical, without signs of atrophy or dystrophy UPPER EXTREMITY RIGHT LEFT Shoulder Abduction *5/5 *5/5 Biceps *07/20 */ Triceps */ *5/5 Wrist Extension */ *5/5 Hand Intrnsics *07/20 */ Artificial Limb Maker *07/20 */ Hand and finger dexterity intact bilaterally? DEL YES NO Disdiadochokinesis examination negative bilaterally? DEL YES NO LOWER EXTREMITY RIGHT LEFT Hip Flexion *4/5 *4/5 Knee Extension */5 *4/5 Knee Flexion */ */5 Dorsiflexion */5 *4/5 Plantarflexion */5 *4/5 EHL */5 *4/5 FHL */5 *4/5 Toe heel walk / heel-toe walk intact while maintaining satisfactory balance? DELYES No Squatting/straightening w/o assistance to a min of 60 degree knee flexion?DEL YES No Single leg stance: DEL INTACT [place] NEG unable to do due to pain REFLEXES(0-4/2, NT)Upper ExtremityLower Extremity Right * 2 * 2 Left * 2 * 2 Pathological Reflexes RIGHT LEFT Poe's Absent PRESENT Absent PRESENT Clonus Absent #BEATS Absent #BEATS Babinski Absent PRESENT Absent PRESENT Sensory system (0-4, N/T) Test type RU TOM RL LL Joint-Position *2 *2 *2 *2 Vibration *2 *2 *2 *2 Pain & LT sense *2 *2 *2 *2 Dermatomal Deficit: * None *None *None *None Gait and Functional Evaluation: Ambulatory aids: DEL Walker Romberg's test: DEL Intact bilaterally *Steady/unsteady Gait RADIOGRAPHIC STUDIES: XRay CAP/L TAP/L Lumbar AP/lateral 2 views LMVP CMV taken at [facility] OF on 11/02/22 of Lumbar Spine: * Images reviewed segmentation difference with sacralization of what woud be L5, CT image read at L5 fracture and so to stay congruent will name level this. L5 compression fracture that has increased progressively since injury with near 50% collapse now from 20% previously. Severe spondylosis through lumbar spine with flattented lordosis. No other fractues evident. AP pelvis shows congruent level pevis w/o fracture CT scancompleted at [facility] Outside facility from *08/24/22 of Lumbar Spine: * Images reviewed from OSH. L5 bust compression type fracture with <20% collapse. No other fractures. IMPRESSION: It was my pleasure to have seen and examined Marcellus. I reviewed the patient's clinical syndrome, physical findings, and imaging studies during the appointment today. It is my impression that the patient has a diagnosis of. 1. L5 compression fracture 50% progressive deformity 2. Low back pain 3. Debility I outlined the natural course history without intervention and various interventional options. PLAN: Based on my findings I suggest the following course of action: -* We discussed all options for treatment at [facility]. They have decided to persue surgical treatment. They understand that Marcellus is a high risk for surgery and post op/perioperative issues related to his age, and multiple comorbid conditions and are willing to assume all the risks of surgery. -Physical Therapy1 -HOMEEX -HEALTHMA -CONTPRO - SMCESSFU - SMCESSNP - WEIGHTLOSSCOUNS - SUPP - EWP PM&R CONSULT UNI - I discussed treatment options with the patient, including operative and non- operative options, and they have elected to proceed with the following surgical procedure: cervical thoracic lumbar BACKSURGT... L5 kyphoplasty with biopsy The indications, risks, benefits, and alternatives to surgery were discussed with the patient and family at length. Specifically (but not limited to) the risks of infection, stiffness, recurrence of symptoms, need for revision surgery, local numbness, neurovascular injury, and blood clots were discussed. The patient's questions were answered.CALL BACK The decision to proceed was made. Consent will be obtained for the procedure. -RXGIVEN MRIAPPTL Brace Fitting knee brace Wear brace as directed while up and about, riding in cars or long walks. Do not wear while sleeping and showering. Liftingreturnact offwork returnwork casemgr DEL -Ambulate daily -Take medications as directed -Ice and rest for pain and swelling control. Spine Surgery Risk Review Mr. Rangel is presenting for evaluation of low back pain, continusous severe, progressive with debility. It was my pleasure to have seen and examined Mr. Rangel. In our visit today we have had a chance to go over subjective complaints, physical examination findings and treatments including the natural course history without intervention and various interventional options. The patients imaging demonstrates: L5 VCF with 50% collapase and progressive deformity. On physical exam, Mr. Rangel demonstrates: severe low back pain, TTP around L5 midline and debility due to fracture and pain. I have explained to the patient that as their condition progresses it will cause further neurological deficits and eventual paralysis. Based on the patients imaging, physical exam, and the rapid progression and disabling nature of their symptoms, at this time I recommend surgery in the form of a: L5 kyphoplasty with biopsy BACKSURGT.... I discussed the risk and benefits of this procedure at length with Mr. Rangel. The patient son agreed to considered pursuing the procedure abovementioned. Prior to surgery, she should follow up with her PCP (Cardio, ID, IM etc) for clearance. Questions were invited and answered, and the patient wishes to proceed as outlined below. Currently, I am recommendin.L5 Kyphoplasty with biopsy 2.Follow up with PCP for surgical clearance 3.Review of surgical risks and benefits as well as an educational packet on the proposed surgical procedure. Risks: All surgical procedures come with inherent risks, including those related to positioning, anesthesia, intraoperative findings, and postoperative complicati ons. It is important to understand that surgery does not come with any guarantee of a successful outcome as complications and adverse events are always possible. The patient was given a handout in office today discussing the surgical procedure and risks associated with the intervention, both of which were discussed with the patient. These risks include but are not limited to the following: * Experiencing same, different or even worse symptoms in back, neck, arms, or legs compared to before surgery. Requiring further surgery or other forms of treatment presently or at some time in the future at same or other levels of the intended spine surgery. On an extreme but fortunately relatively rare basis severe complication such as blindness, stroke, heart attack, temporary and/or permanent nerve injury, paralysis, coma, or may occur, sometimes without known explanation. Surgical complications may include but are not limited to risk of infection, fluid accumulation in the surgical dissection site, including a seroma or hematoma, that requires additional surgery, wound drainage, bleeding, new numbness or weakness, vision changes/loss, spinal fluid leakage, non-healing and/or infected incision, headaches, difficulty or inability to swallow, hoarseness, hemopneumothorax, pneumothorax, impotence, retrograde ejaculation, vaginal dryness; injury to nerves, spinal cord, blood vessels, lymphatics or other vital organs (i.e., bowel injury, injury to the great vessels); heterotopic bone formation; complications related to the hardware such as screws, rods, cages including misplaced hardware, device failure, instrumentation at the wrong spine level, hardware fracture/breakage, or hardware loosening; vertebral failure of the spinal column above or below the newly placed hardware; retained surgical instrumentations or devices and the need for further surgery. * Medical risks of the planned spine surgery include but are not limited to generalized Infections to the whole body or local areas outside of the surgical site (sepsis), heart attack, bleeding, anaphylaxis, meningitis, seizure, epilepsy, hearing loss, burn palacios, laceration of the head or other areas of the body, bruising, hypersensitivity of the skin, bladder over distension; allergic reaction; shoulder injury related to positioning; fat, blood and air clots to other areas of the body like heart, lungs, brain; failure of internal organs such as lungs, kidneys, liver and excessive bleeding. If blood transfusions are necessary, note that transfusions may cause intolerance reactions such as anaphylaxis or other complex reactions. Despite best efforts, the results of spine surgery might not heal in terms of bone, soft tissues such as skin, fascia, ligaments, and joints. Additionally, in order to achieve best possible results, spine surgery may be carried out beyond the initially planned levels and involve decompression, fusion including insertion of hardware at levels other than the original intended area of surgical interest change some portions of the procedure in order to ensure the best possible outcomes. With spine surgery and spinal fusion, there are different off label uses of instrumentation (devices, implants and hardware) as well as biological substances (bone morphogenic proteins, demineralized bone matrix) as well as using extra bone from allograft sources (i.e. cadaver bone) or autograft (iliac crest bone, ribs, or the spine itself). The patient has been given information about these practices and their inherent risks and benefits. [facility] is an educational center that serves as a training facility for neurosurgical and orthopedic CAR BU[employer] and Nursing students. Physician assistants are medically trained surgical providers who function in the outpatient, inpatient, and operating room setting under the direct supervision of the attending surgeon. [facility] has multiple operating rooms with single and overlapping rooms running daily. They currently function under the required guidelines as produced by the [facility] Finance Committee with regards to the overlapping rooms and will continue to comply with changes to this policy as they occur. The requirements include and are complied with as follows: (1) the critical portions of the overlapping rooms will not occur at the same time, (2) the attending physician will be physically present during the critical portions of the procedure and immediately available during the entire case, and (3) a back-up attending is designated should the primary attending not be immediately available. The patient has had a chance to review all the listed information, has been given print outs detailing this information, and has had all his/her questions answered to their satisfaction. It was my pleasure to have seen and examined Mr. Rangel. In our visit today we have had a chance to go over my understanding of our patient's current condition, the natural course history without intervention and various interventional options. Questions were invited and answered, and the patient wishes to proceed as outlined above. I have seen and examined the patient for 25 minutes and we have spent more than 50% of the time in repeat and detailed counseling about the patient's condition, its natural course history with out and as much as can be predicted with surgery and re-review of various surgical treatment options. In conclusion, Mr. Rangel and his son in the room with him requested we proceed with the above suggested surgery and are willing to accept risks and limitations of the suggested surgery as nature of the disease process and our best attempts at treatment for the condition. Thank you again for allowing us to be part of your patient's care. Please don't hesitate to contact me if you have any further questions. Follow-up: 2 weeks PO DEL F/U... 1month 6wks 3 months 6 months 1 year Patient Education: (Informational booklet, instructions, etc) given at today's appointment: CLARIBEL Yes .ED:Patient Education: Y Plan at next visit: CLARIBEL sandy xop X-ray oop Medications Reviewed: YES In our visit today Mr. Rangel and I have had a chance to go over my understanding of the patient's current condition, the natural course history without intervention and various interventional options. Questions were invited and answered, and the patient wishes to proceed as outlined above. I will be sure to keep you updated afterMrJeana Rangel returns here for further follow-up. Thank you again for your referral. Please do not hesitate to contact me if you have any further questions. Signed and authenticated by: LINO Bartholomewon [facility] [address] [place] [id number] This message is confidential, intended only for the named recipient(s) and may contain information that is privileged or exempt from disclosure under applicable law. If you are not the intended recipient(s), you are notified that the dissemination, distribution or copying of this information is strictly prohibited. If you received this message in error, please notify the sender then delete this message. SCRIBE SIGN CC: CLARIBEL REFDR... Past Medical History Past Medical History: Coronary Artery Disease (CAD) Additional Past Medical History / Comment(s): Status post fall about 4 weeks ago with new back pain History of Any Multi-Drug Resistant Organisms: None Reported Past Surgical History: Coronary Bypass/CABG, Heart Catheterization With Stent, Pacemaker Additional Past Surgical History / Comment(s): heart valve replacemnt Date of Last Stent Placement:: n/a Type of Cardiac Device: Permanent Pacemaker Device Placement Date:: n/a Past Psychological History: No Psychological Hx Reported Past Alcohol Use History: Rare Past Drug Use History: None Reported Medications and Allergies Home Medications Medication Instructions Recorded Confirmed Type Acetaminophen Tab [Tylenol] 650 mg PO Q4H PRN 08/31/22 08/31/22 History Amiodarone [Cordarone] 200 mg PO DAILY 08/31/22 08/31/22 History Ascorbic Acid [Vitamin C] 500 mg PO DAILY 08/31/22 08/31/22 History Aspirin EC [Ecotrin Low Dose] 81 mg PO DAILY 08/31/22 08/31/22 History Atorvastatin [Lipitor] 80 mg PO DAILY 08/31/22 08/31/22 History Budesonide [Pulmicort Flexhaler] 2 puff INHALATION RT-BID 08/31/22 08/31/22 History Cholecalciferol [Vitamin D3 (25 25 mcg PO DAILY 08/31/22 08/31/22 History Mcg = 1000 Iu)] Furosemide [Lasix] 60 mg PO AC-BRKFST 08/31/22 08/31/22 History Isosorbide Mononitrate ER [Imdur] 30 mg PO DAILY 08/31/22 08/31/22 History Levalbuterol Hfa Inhaler [Xopenex 2 puff INHALATION RT-Q8H PRN 08/31/22 08/31/22 History Hfa Inhaler] Levothyroxine Sodium [Synthroid] 50 mcg PO DAILY 08/31/22 08/31/22 History Loratadine [Claritin] 10 mg PO DAILY 08/31/22 08/31/22 History Metoprolol Tartrate [Lopressor] 12.5 mg PO BID 08/31/22 08/31/22 History Multivit-Mins/Iron/Folic/Lycop 1 tab PO DAILY 08/31/22 08/31/22 History [Centrum Men's Tablet] Nitroglycerin Sl Tabs [Nitrostat] 0.4 mg SUBLINGUAL Q5M PRN 08/31/22 08/31/22 History Pantoprazole Sodium [Protonix] 40 mg PO DAILY 08/31/22 08/31/22 History Potassium Chloride ER [K-Dur 20] 20 meq PO DAILY 08/31/22 08/31/22 History Ranolazine [Ranexa] 500 mg PO BID 08/31/22 08/31/22 History Sennosides/Docusate Sodium 1 tab PO BID 08/31/22 08/31/22 History [Senna-S 8.6-50 mg Tablet] Tamsulosin HCl [Flomax] 0.4 mg PO DAILY 08/31/22 08/31/22 History Meloxicam [Mobic] 15 mg PO DAILY PRN #30 tab 09/01/22 Rx traMADol HCl [Ultram] 50 mg PO Q6HR PRN 3 Days #12 tab 09/01/22 Rx Allergies Allergy/AdvReac Type Severity Reaction Status Date / Time No Known Allergies Allergy Verified 08/31/22 19:49 Physical Examination Osteopathic Statement: *. No significant issues noted on an osteopathic structural exam other than those noted in the History and Physical/Consult.
[2022-11-05 08:49] VITALS: BMI 25.7
[~2022-11-06 12:57] MED LIST: ACETAMINOPHEN TAB 500 MG TAB PO PRN; GABAPENTIN 300 MG CAP PO PRN; ONDANSETRON 4 MG/2 ML VIAL IVP PRN; TRANEXAMIC 1,000 MG/100ML-NACL 1,000 MG in SALINE 1 100ML.BAG IVPB PRN
[2022-11-06] MEDS ORDERED: LACTATED RINGERS 1,000 ML IV ONE ×2 (13:43→16:26)
[2022-11-06 13:47] LABS: Glucose,Whole Blood 97 mg/dL (70-110)
--- NOTE | 2022-11-06 14:19 | P.PN ---
Progress Note - Text Progress Note Date: 11/06/22 Pt s/e in Pre op area with son at bedside as well as anesthesiologist. Cardiology contacted yesterday and pt is high risk for any procedure. Discussed possibilities including sedation. Anesthesia however needs to have possibility of general if needed should the patient warrant this. Discussed with son and pt at bedside extensively. Explained to them the risks and benefits of sedation vs general and the spectrum of medication used to achieve this. Discussed with them again the possibility of general and if needed the son might have to endure the possibility that if general is needed the ET tube might not be able to come out. Should this happen he would have to make a decision and he understands. The pt also understands as well and pt states he would rather have that be the case than life in constant pain. They understand the risks of this procedure and possible outcomes and they are willing to assume all the risk of surgery at this time. They understand the patients high risk for any procedure, but they still want it done. They are willing to proceed with surgery. Discussed with anesthesiologist who agrees.
[2022-11-06] MEDS ORDERED: MIDAZOLAM 2 MG/2 ML VIAL ONE (14:57)
[2022-11-06] MEDS ORDERED: KETAMINE 10 MG/ML 20 ML VIAL ONE (14:57)
[2022-11-06] MEDS ORDERED: TRANEXAMIC 1,000 MG/100ML-NACL PREMIX BAG ONE (14:57)
[2022-11-06] MEDS ORDERED: LIDOCAINE 2%-EPI 1:100,000 20 ML VIAL SQ ONE ×2 (15:27)
[2022-11-06] MEDS ORDERED: BUPIVACAINE (PF) 0.25% 30 ML VIAL SQ ONE ×2 (15:27)
[2022-11-06] MEDS ORDERED: IOPAMIDOL M200 10 ML VIAL MISCELLANE ONE (15:28)
--- NOTE | 2022-11-06 15:52 | P.OP ---
Date of Procedure: 11/06/22 Preoperative Diagnosis: 1. L5 VCF >50% COMPRESSED 2. LOW BACK PAIN 3. COMPLEX MEDICAL PATIENT Postoperative Diagnosis: 1. L5 VCF >50% COMPRESSED 2. LOW BACK PAIN 3. COMPLEX MEDICAL PATIENT Procedure(s) Performed: 1. L5 KYPHOPLASTY WITH BIOPSY BILATERAL Implants: SUKI Anesthesia: local, other (sedation) Surgeon: Bharat Ledbetter Instrument Room Technician #1: Geremias Yin (THOMAS Lyons Was present and assisted with all aspects of the case from positioning to dressing placement) Estimated Blood Loss (ml): 2 IV fluids (ml): 500 Urine output (ml): 0 Pathology: other (L5) Condition: stable Disposition: PACU Indications for Procedure: Mr. Rangel is presenting for evaluation of low back pain, continusous severe, progressive with debility. It was my pleasure to have seen and examined Mr. Rangel. In our visit today we have had a chance to go over subjective complaints, physical examination findings and treatments including the natural course history without intervention and various interventional options. The patients imaging demonstrates: L5 VCF with 50% collapase and progressive deformity. On physical exam, Mr. Rangel demonstrates: severe low back pain, TTP around L5 midline and debility due to fracture and pain. I have explained to the patient that as their condition progresses it will cause further neurological deficits and eventual paralysis. Based on the patients imaging, physical exam, and the rapid progression and disabling nature of their symptoms, at this time I recommend surgery in the form of a: L5 kyphoplasty with biopsy BACKSURGT.... I discussed the risk and benefits of this procedure at length with Mr. Rangel. The patient son agreed to considered pursuing the procedure abovementioned. Prior to surgery, she should follow up with her PCP (Cardio, ID, IM etc) for clearance. Questions were invited and answered, and the patient wishes to proceed as outlined below. Currently, I am recommendin.L5 Kyphoplasty with biopsy Description of Procedure: kYPHOPLASTY L5 The patient was seen and examined in the preoperative area. All preoperative protocols were followed. Informed consent was obtained, risks and benefits of the procedure were discussed at length. Risks including bleeding infection damage to the surrounding tissue and risk of re-operation were discussed with the patient. Risk of anesthesia up to and including was discussed with the patient. These are outlined in the risk review. They were willing to accept these risks and all the risks of surgery. The patient was given a weight-based dose of antibiotics in the form of 2 g Ancef. The patient was seen and evaluated by the anesthesia team who deemed them fit for surgery. The site was marked, the patient was willing to proceed with the procedure. The patient was transferred to the operative suite by the Department of anesthesia. They were then drifted off to sleep by the department anesthesia and SEDATION was performed. The patient tolerated this well. Once confirmation of lines and ventilation the patient was transferred to a prone Suman table very carefully. All bony prominences including wrists, elbows, axilla, chest, hips, and thighs, and feet were padded very well. Special attention was paid to the genitalia, and these were padded accordingly. SCDs were placed on bilateral lower extremities and were connected. Arms were well padded and placed on arm boards up and out in the 90/90 position. Once in position, again we confirmed good ventilation capabilities and that lines were running appropriately. The patients Lumbar spine was then exposed. 1010s were placed outlining the incision site. Standard alcohol was used to clean the incision site and allowed to dry. C-arm was used to needle localize the pedicles at T12 and bio-nereyda the patient and confirm level for incision which was marked with a skin marker. Operative briefing was performed with all teams and everyone in agreement to proceed. The patient was then prepped and draped in a normal sterile fashion. Timeout was then performed, and all parties agreed with the procedure to be performed. Local anesthetic was given in the skin and soft tissue over the incision to be made b/l at L5 localized with fluoroscopy. Skin marycruz was made. Jamshitdis was passed into the L5 vertebral body via the pedicle bilaterally. This was done with biplane fluoroscopy. Once in good position in the body the trochar removed. Biopsy needle was passed into the body and biopsy taken. Drill was then passed and biopsy material taken from drill as well. Curette used to make space and reduce the fracture. Balloon was then passed an inflated which showed reduction of endplate on AP and Lateral and confirmed central placement. Cement was then placed bilaterally under flouroscopic guidance. Good fill of cement was seen without extravasation. Pt remained stable through process. Once good fill, the Jamshedi was removed and the wound irrigated. AP and lateral confirmed good reduction of the fracture and good cement fill. The skin was closed with a simple stitch and dressed with glue and a bandaid. The patient was then transferred off the table back to their hospital bed a- traumatically. They were extubated by the department of anesthesia. They were then transferred to PACU in stable condition having tolerated the procedure with no complications.
--- NOTE | 2022-11-06 16:15 | XR ---
Intraoperative/procedural fluoroscopic services were provided for L5 kyphoplasty. Total fluoroscopy t penny is 1:26 minutes with a total of 3 submitted images to PACS. Total DAP 8.3903 Gycm2. Please see t he operative note for further details.
[2022-11-06] MEDS ORDERED: LACTATED RINGERS 1,000 ML IV SCH (16:30)
[2022-11-06 16:33] LABS: Glucose,Whole Blood 110 mg/dL (70-110)
[2022-11-06] MEDS ORDERED: ACETAMINOPHEN TAB 500 MG TAB PO PRN (18:11)
[2022-11-06] MEDS ORDERED: SODIUM CHLORIDE 0.9% 1,000 ML IV SCH (18:15)
[2022-11-06 19:26] VITALS: RESP 18
[2022-11-07] MEDS ORDERED: DEXTROSE 50% SYRINGE 50 ML IVP PRN ×2 (01:57)
--- NOTE | 2022-11-07 02:01 | P.CONS ---
History of Present Illness - Reason for Consult Consult date: 11/06/22 perioperative medical management - History of Present Illness 87 year old male with hypertension , CAD Patient is very hard of hearing and provides very limited history. He came in for chronic low back pain for scheduled kyphoplasty he tolerated the chair well no observed immediate postoperative complications he currently denies any chest pain trouble breathing denies any new onset focal neuro deficits denies any uri nary changes. He tolerated by mouth intake denies any nausea vomiting or abdominal pain review of systems Pertinent positives as noted in HPI. All other systems were reviewed and are negative on exam Constitutional: No acute distress, conversant, very hard of hearing Eyes: Anicteric sclerae, moist conjunctiva, Pupils equal round reactive to light ENMT: NC/AT Oropharynx clear, no erythema, or exudates Neck: Supple, no masses, or JVD No carotid bruits No thyromegaly Lungs: Clear to auscultation Clear to percussion Normal respiratory effort, no accessory muscle use Cardiovascular: Heart regular in rate and rhythm, No murmurs, gallops, or rubs No peripheral edema Abdominal: Soft Nontender, no guarding, rebound or rigidity Abdomen moving with respiration Normoactive bowel sounds No hepatomegaly, No splenomegaly No palpable mass No abdominal wall hernia noted Extremities: No digital cyanosis No clubbing Pedal pulses intact and symmetrical Radial pulses intact and symmetrical No calf tenderness Psychiatric: Alert and oriented to person, place Neuro Muscles Strength 4/5 in all 4 extremities Sensation to light touch grossly present throughout Cranial nerves II-XII grossly intact Lymphatics: no palpable cervical or supraclavicular lymph nodes Past Medical History Past Medical History: Coronary Artery Disease (CAD), Chest Pain / Angina, Heart Failure, GERD/Reflux, Hyperlipidemia, Respiratory Disorder, Thyroid Disorder Additional Past Medical History / Comment(s): hx of fall with lumbar compression fx., son states mix up in his meds and he was taking double lasix and became dehydrated and had 2-3 more falls possibly from dehydration., constipation, pacemaker, states he is not diabetic (on Jardiance). History of Any Multi-Drug Resistant Organisms: None Reported Past Surgical History: Coronary Bypass/CABG, Heart Catheterization With Stent, Pacemaker Additional Past Surgical History / Comment(s): heart valve replacement, cabg (5) over 25 yrs ago, total of 3 cardiac stents (last stent approx. 4 yrs ago). Past Anesthesia/Blood Transfusion Reactions: No Reported Reaction Date of Last Stent Placement:: 2018? Type of Cardiac Device: Permanent Pacemaker Device Placement Date:: unknown Past Psychological History: No Psychological Hx Reported Smoking Status: Former smoker, Unknown if ever smoked Past Alcohol Use History: None Reported Additional Past Alcohol Use History / Comment(s): quit smoking 50 years ago. Past Drug Use History: None Reported Medications and Allergies Home Medications Medication Instructions Recorded Confirmed Type Aspirin EC [Ecotrin Low Dose] 81 mg PO DAILY 08/31/22 11/06/22 History Isosorbide Mononitrate ER [Imdur] 30 mg PO DAILY 08/31/22 11/06/22 History Levothyroxine Sodium [Synthroid] 50 mcg PO DAILY 08/31/22 11/06/22 History Loratadine [Claritin] 10 mg PO DAILY 08/31/22 11/06/22 History Metoprolol Tartrate [Lopressor] 12.5 mg PO BID 08/31/22 11/06/22 History Nitroglycerin Sl Tabs [Nitrostat] 0.4 mg SUBLINGUAL Q5M PRN 08/31/22 11/06/22 History Pantoprazole Sodium [Protonix] 40 mg PO DAILY 08/31/22 11/06/22 History Albuterol Inhaler [Ventolin Hfa 1 - 2 puff INHALATION Q4-6H PRN 11/05/22 11/06/22 History Inhaler] Amiodarone [Cordarone] 200 mg PO BID 11/05/22 11/06/22 History Ascorbic Acid [Vitamin C] 500 mg PO DAILY 11/05/22 11/06/22 History Atorvastatin [Lipitor] 80 mg PO DAILY 11/05/22 11/06/22 History Cholecalciferol [Vitamin D3 (25 50 mcg PO DAILY 11/05/22 11/06/22 History Mcg = 1000 Iu)] Docusate [Colace] 100 mg PO BID 11/05/22 11/06/22 History Empagliflozin [Jardiance] 10 mg PO DAILY 11/05/22 11/06/22 History Fluticasone Nasal [place] [Flonase 2 spray EA NOSTRIL DAILY 11/05/22 11/06/22 History Nasal [place]] Furosemide [Lasix] 80 mg PO DAILY 11/05/22 11/06/22 History Lidocaine 5% Patch [Lidoderm] 1 patch TOPICAL DAILY 11/05/22 11/06/22 History Magnesium Oxide [Mag-Ox] 420 mg PO DAILY 11/05/22 11/06/22 History Mometasone 200mcg 2 puff INHALATION BID 11/05/22 History Multivitamins, Thera [Multivitamin 1 tab PO DAILY 11/05/22 11/06/22 History (formulary)] Naproxen [Naprosyn] 375 mg PO Q12HR 11/05/22 11/06/22 History Potassium Chloride 10 meq PO BID 11/05/22 11/06/22 History Ranolazine [Ranolazine ER] 500 mg PO Q12HR 11/05/22 11/06/22 History Tamsulosin [Flomax] 0.4 mg PO DAILY 11/05/22 11/06/22 History Vitamin D3 (Unknown Dose) 1 dose PO DAILY 11/05/22 11/06/22 History guaiFENesin [Mucinex] 600 mg PO Q12H 11/05/22 11/06/22 History metOLazone [Zaroxolyn] 2.5 mg PO BID 11/05/22 11/06/22 History traZODone HCL 100 mg PO HS 11/05/22 11/06/22 History traMADol HCl [Ultram] 50 mg PO Q6H PRN #12 tab 11/06/22 Rx Allergies Allergy/AdvReac Type Severity Reaction Status Date / Time No Known Allergies Allergy Verified 11/06/22 13:51 Physical Exam Vitals: Vital Signs Temp Pulse Resp BP Pulse Ox 11/07/22 00:05 97.7 F 58 L 18 103/61 97 11/06/22 19:05 98.0 F 61 18 143/72 97 11/06/22 18:30 60 16 113/62 100 11/06/22 18:15 61 16 122/61 100 11/06/22 18:00 59 L 16 119/64 100 11/06/22 17:45 60 16 104/51 99 11/06/22 17:30 61 16 118/55 97 11/06/22 17:15 60 16 91/43 99 11/06/22 17:00 60 16 119/54 100 11/06/22 16:45 60 17 115/58 100 11/06/22 16:33 60 18 104/50 100 08/22/23 16:18 63 12 104/62 100 11/06/22 16:03 59 L 22 95/45 94 L 11/06/22 15:48 97.4 F L 80 20 113/55 96 11/06/22 14:03 96.7 F L 61 20 135/63 97 Intake and Output 11/06/22 11/06/22 11/07/22 14:59 22:59 06:59 Intake Total 1650 Output Total 2 Balance 1648 Intake: IV 1650 Output: Estimated Blood Loss 2 Other: Weight 87 kg Results CBC & Chem 7: 11/06/22 13:42 Assessment and Plan Assessment: Status post kyphoplasty postoperative day 0 Postoperative care per orthopedic team Chronic conditions Hypertension, continue with mid to upper lobe Coronary artery disease, continue statin, Imdur, amiodarone Hypothyroid continue with levothyroxine Diabetes mellitus, insulin sliding scale Check a.m. labs CBC and CMP Stable from medical standpoint Thank you for this consultation
[2022-11-07] MEDS ORDERED: LEVOTHYROXINE 50 MCG TAB PO SCH (06:30)
[2022-11-07] MEDS ORDERED: fentaNYL (PF) 50 MCG/ML 2 ML AMP IV PRN (07:00)
[2022-11-07] MEDS ORDERED: PANTOPRAZOLE 40 MG TABLET PO SCH (07:30)
[2022-11-07] MEDS ORDERED: INSULIN ASPART (NovoLOG) 100 UNIT/ML VIAL SQ SCH (07:30)
[2022-11-07 08:41] LABS: Glucose,Whole Blood 138 mg/dL (70-110)
[2022-11-07] MEDS ORDERED: TAMSULOSIN 0.4 MG CAP.ER.24H PO SCH (09:00)
[2022-11-07] MEDS ORDERED: ISOSORBIDE MONONITRATE ER 30 MG TAB.ER.24H PO SCH (09:00)
[2022-11-07] MEDS ORDERED: AMIODARONE 200 MG TAB PO SCH (09:00)
[2022-11-07] MEDS ORDERED: ATORVASTATIN 80 MG TAB PO SCH (09:00)
[2022-11-07] MEDS ORDERED: RANOLAZINE 500 MG TAB.ER.12H PO SCH (09:00)
[2022-11-07] MEDS ORDERED: METOPROLOL TARTRATE 12.5 MG TAB PO SCH (09:00)
[2022-11-07] MEDS ORDERED: ASPIRIN 81 MG PO SCH (09:00)
[2022-11-07 09:55] VITALS: BP 106/62; PULSE 61; TEMP 98.3
--- NOTE | 2022-11-07 10:08 | P.PN ---
Subjective Progress Note Date: 11/07/22 Principal diagnosis: 1. L5 vertebral compression fracture greater than 50% compressed 2. Low back pain 3. Complex medical patient Patient seen and examined this morning. Patient is resting comfortably in bed. Patient reports that his pain is managed on current regimen. Patient was able to reposition himself to the side of the bed to sit at bedside table to eat breakfast. Patient reports that he is ready to go home today. No acute events overnight. Objective - Vital Signs Vital signs: Vital Signs Temp 97.7 F 11/07/22 00:05 Pulse 58 L 11/07/22 00:05 Resp 18 11/07/22 00:05 BP 103/61 11/07/22 00:05 Pulse Ox 97 11/07/22 00:05 FiO2 Intake & Output 11/06/22 11/07/22 11/07/22 18:59 06:59 18:59 Intake Total 1650 Output Total 2 Balance 1648 Weight 87 kg 87 kg Intake: IV 1650 Output: Estimated Blood Loss 2 Other: Voiding Method Toilet - Exam Physical Examination General: The patient is awake and alert, in no acute distress Skin: Skin is warm and dry with no obvious rashes or lesions. Surgical puncture site at the lumbar region, Band-Aid is present Eye: Pupils are equal, round and reactive to light, extra-ocular movements are i ntact; there is normal conjunctiva bilaterally. Neck: The neck is supple, there is no tenderness and ROM intact. Cardiovascular: There is a regular rate and rhythm. No murmur, rub or gallop is appreciated. Respiratory: Lungs are clear to auscultation, respirations are non-labored, breath sounds are equal. Gastrointestinal: Soft, non-distended, non-tender abdomen. Back: There is no tenderness to palpation in the midline, paralumbar, parathoracic or buttocks region. There is no obvious deformity . Musculoskeletal: ROM limited secondary to pain and stiffness from surgical procedure. Muscle strength in all major muscle groups of bilateral upper extremities 5/5, bilateral lower extremities 4/5. Neurological: CN 2-12 intact. There are no obvious motor or sensory deficits. Movement and coordination equal and intact. Sensory exam to light touch intact C5-T1 and intact from L2-S1. Reflexes 2/4 in bilateral upper and lower extremities. Negative Hoffmans, babinski, and clonus signs. Psychiatric: Cooperative, appropriate mood & affect, normal judgment. - Labs CBC & Chem 7: 11/06/22 13:42 Assessment and Plan Assessment: Postop day 1: L5 kyphoplasty 1. L5 vertebral compression fracture greater than 50% compressed 2. Low back pain 3. Complex medical patient Plan: -Appreciate solutions architect consultant and team management. -Activity: Ambulate QID, OOB all meals, up and about, limit lifting bending twisting to less than 5 lbs. Use walker or cane if needed for stability. -Pain control: Adequate at this time -Meds: reviewed -GI ppx: senna, Miralax -DVT PPX: Mechanical -Encourage IS 10x/hr -Dispo: Discharge home today 11/07/2022 *I reviewed and discussed this case with my attending Dr. Ledbetter, whom has reviewed this chart and films and is in agreement with assessment and plan of care as outlined above. I have personally seen and examined the patient, performed the documentation and the assessment and plan as written. Number of minutes spent on the visit: 15m.
--- NOTE | 2022-11-07 10:09 | P.DS ---
Providers Date of admission: 11/06/22 Expected date of discharge: 11/07/22 Attending physician: Bharat Ledbetter DO Consults: 11/06/22 20:08 Consult Physician Routine Consulting Provider: Nataliia Gillespie Consult Reason/Comments: Medical Management Do you want consulting provider notified?: Yes Primary care physician: [facility] Course: Hospital Course: The patient was evaluated preoperatively and found to have the diagnosis of L5 compression fracture. They underwent appropriate preoperative care and were willing to undergo the intended procedure. They underwent a successful L5 kyphoplasty, were recovered appropriately and sent to the floor. While on the floor they worked with physical therapy, occupational therapy and nursing to enhance their recovery experience. Their pain was well controlled through their stay and they were started on appropriate medications, DVT ppx modalities, activity and dietary needs. Daily labs were monitored closely, and transfusions were only used when necessary. Medicine as well as other consulting services have made their input and have helped with our team approach and mul tidisciplinary care. PT milestones have been met and passed and they have made the recommendation of home for this patient and treating providers agree with this care path. The patient will be discharged home with appropriate medications, instructions and follow-up information and in stable condition. Patient Condition at Discharge: Good Plan - Discharge Summary Discharge Rx Participant: Yes New Discharge Prescriptions: New traMADol HCl [Ultram] 50 mg PO Q6H PRN #12 tab PRN Reason: Pain No Action Aspirin EC [Ecotrin Low Dose] 81 mg PO DAILY Metoprolol Tartrate [Lopressor] 12.5 mg PO BID Pantoprazole Sodium [Protonix] 40 mg PO DAILY Furosemide [Lasix] 80 mg PO DAILY Albuterol Inhaler [Ventolin Hfa Inhaler] 1 - 2 puff INHALATION Q4-6H PRN PRN Reason: Shortness Of Breath metOLazone [Zaroxolyn] 2.5 mg PO BID Vitamin D3 (Unknown Dose) 1 dose PO DAILY Multivitamins, Thera [Multivitamin (formulary)] 1 tab PO DAILY Tamsulosin [Flomax] 0.4 mg PO DAILY Amiodarone [Cordarone] 200 mg PO BID Cholecalciferol [Vitamin D3 (25 Mcg = 1000 Iu)] 50 mcg PO DAILY Ascorbic Acid [Vitamin C] 500 mg PO DAILY traZODone HCL 100 mg PO HS Naproxen [Naprosyn] 375 mg PO Q12HR Ranolazine [Ranolazine ER] 500 mg PO Q12HR Lidocaine 5% Patch [Lidoderm] 1 patch TOPICAL DAILY Docusate [Colace] 100 mg PO BID Empagliflozin [Jardiance] 10 mg PO DAILY guaiFENesin [Mucinex] 600 mg PO Q12H Isosorbide Mononitrate ER [Imdur] 30 mg PO DAILY Levothyroxine Sodium [Synthroid] 50 mcg PO DAILY Loratadine [Claritin] 10 mg PO DAILY Nitroglycerin Sl Tabs [Nitrostat] 0.4 mg SUBLINGUAL Q5M PRN PRN Reason: Chest Pain Potassium Chloride 10 meq PO BID Magnesium Oxide [Mag-Ox] 420 mg PO DAILY Fluticasone Nasal [place] [Flonase Nasal [place]] 2 spray EA NOSTRIL DAILY Mometasone 200mcg 2 puff INHALATION BID Atorvastatin [Lipitor] 80 mg PO DAILY Discharge Medication List Aspirin EC [Ecotrin Low Dose] 81 mg PO DAILY 08/31/22 [History] Isosorbide Mononitrate ER [Imdur] 30 mg PO DAILY 08/31/22 [History] Levothyroxine Sodium [Synthroid] 50 mcg PO DAILY 08/31/22 [History] Loratadine [Claritin] 10 mg PO DAILY 08/31/22 [History] Metoprolol Tartrate [Lopressor] 12.5 mg PO BID 08/31/22 [History] Nitroglycerin Sl Tabs [Nitrostat] 0.4 mg SUBLINGUAL Q5M PRN 08/31/22 [History] Pantoprazole Sodium [Protonix] 40 mg PO DAILY 08/31/22 [History] Albuterol Inhaler [Ventolin Hfa Inhaler] 1 - 2 puff INHALATION Q4-6H PRN 11/05/22 [History] Amiodarone [Cordarone] 200 mg PO BID 11/05/22 [History] Ascorbic Acid [Vitamin C] 500 mg PO DAILY 11/05/22 [History] Atorvastatin [Lipitor] 80 mg PO DAILY 11/05/22 [History] Cholecalciferol [Vitamin D3 (25 Mcg = 1000 Iu)] 50 mcg PO DAILY 11/05/22 [History] Docusate [Colace] 100 mg PO BID 11/05/22 [History] Empagliflozin [Jardiance] 10 mg PO DAILY 11/05/22 [History] Fluticasone Nasal [place] [Flonase Nasal [place]] 2 spray EA NOSTRIL DAILY 11/05/22 [History] Furosemide [Lasix] 80 mg PO DAILY 11/05/22 [History] Lidocaine 5% Patch [Lidoderm] 1 patch TOPICAL DAILY 11/05/22 [History] Magnesium Oxide [Mag-Ox] 420 mg PO DAILY 11/05/22 [History] Mometasone 200mcg 2 puff INHALATION BID 11/05/22 [History] Multivitamins, Thera [Multivitamin (formulary)] 1 tab PO DAILY 11/05/22 [History] Naproxen [Naprosyn] 375 mg PO Q12HR 11/05/22 [History] Potassium Chloride 10 meq PO BID 11/05/22 [History] Ranolazine [Ranolazine ER] 500 mg PO Q12HR 11/05/22 [History] Tamsulosin [Flomax] 0.4 mg PO DAILY 11/05/22 [History] Vitamin D3 (Unknown Dose) 1 dose PO DAILY 11/05/22 [History] guaiFENesin [Mucinex] 600 mg PO Q12H 11/05/22 [History] metOLazone [Zaroxolyn] 2.5 mg PO BID 11/05/22 [History] traZODone HCL 100 mg PO HS 11/05/22 [History] traMADol HCl [Ultram] 50 mg PO Q6H PRN #12 tab 11/06/22 [Rx] Follow up Appointment(s)/Referral(s): Bharat Ledbetter DO [Doctor of Osteopathic Medicine] - 11/21/22 1:30 pm Patient Instructions/Handouts: *Surgery [facility] - (Anesthesia) Discharge Instructions Outpatient Surgery, Kyphoplasty (DC) Activity/Diet/Wound Care/Special Instructions: Orthopedic Discharge Instructions: 1. Resume home medications after discharge 2. Weightbear as tolerated 3. Utilize walker/cane as needed 4. No lifting, bending, twisting 5. Pain medication as needed 6. Follow up at [facility] in 3 weeks, call office with any question Discharge Disposition: HOME SELF-CARE
[2022-11-07 10:52] LABS: Basophils # (A) 0.05 X 10*3/uL (0.00-0.10); Basophils % (A) 0.9 %; Eosinophils # (A) 0.18 X 10*3/uL (0.04-0.35); Eosinophils % (A) 3.1 %; HCT 37.5 % (39.6-50.0); HGB 12.6 d/dL (13.0-17.0); Lymphocytes # (A) 0.59 X 10*3/uL (0.90-5.00); Lymphocytes % (A) 10.1 %; MCH 32.5 pg (27.0-32.0); MCHC 33.6 d/dL (32.0-37.0); MCV 96.6 FL (80.0-97.0); Monocytes # (A) 0.66 X 10*3/uL (0.20-1.00); Monocytes % (A) 11.2 %; NRBC Per 100 WBC 0 X 10*3/uL (0.00-0.01); Neutrophils # (A) 4.37 X 10*3/uL (1.80-7.70); Neutrophils % (A) 74.4 %; Platelet Count 172 X 10*3/uL (140-440); RBC 3.88 X 10*6/uL (4.40-5.60); RDW 14.7 % (11.5-14.5); WBC 5.87 X 10*3/uL (4.50-10.00)
[2022-11-07 11:02] LABS: ALT 76 U/L (10-49); AST 85 U/L (14-35); Albumin 3.2 d/dL (3.8-4.9); Albumin/Globulin Ratio 1.39 Ratio (1.60-3.17); Alkaline Phosphatase 90 U/L (41-126); Blood Urea Nitrogen 21.6 mg/dL (9.0-27.0); Calcium 8.5 mg/dL (8.7-10.3); Carbon Dioxide 31.2 mmol/L (21.6-31.8); Chloride 97 mmol/L (96-109); Globulin 2.3 d/dL (1.6-3.3); Glucose 79 mg/dL (70-110); Potassium 3.2 mmol/L (3.5-5.5); Sodium 137 mmol/L (135-145); Total Bilirubin 0.6 mg/dL (0.3-1.2); Total Protein 5.5 d/dL (6.2-8.2)
--- NOTE | 2022-11-07 19:01 | P.PN ---
Subjective Progress Note Date: 11/07/22 Hospital course: Patient is a very pleasant 87-year-old male with a past medical history of CAD status post CABG and permanent pacemaker placement, hypertension, hyperlipidemia, hypothyroidism, chronic heart failure, and type II [id number] diabetes mellitus. He is currently admitted to orthopedic surgery team status post elective L5 kyphoplasty with biopsy. Surgical pro cedure was completed by Dr. Ledbetter on 11/06/22. We were consulted for medical management throughout hospitalization. Physical exam: Patient seen and fully evaluated at bedside this morning. Patient appears to be doing well. Denies having any complaints or concerns at this time. States mild 2-3 out of 10 lower back pain otherwise denies any complaints. Vital signs reviewed and stable. General: Nontoxic, no distress and appears stated age. Derm: Skin warm and dry, normal coloration for ethnicity. Head: Atraumatic, normocephalic and symmetric. Eyes: EOMs intact, no lid lag, and anicteric sclera Mouth: no lip lesions, mucus membranes moist Cardiovascular: regular rate and rhythm with normal S1S2, no murmur, positive posterior tibial pulses bilaterally, and cap refill < 2 seconds. Lungs: Respirations even, regular, and unlabored on room air. Lungs CTA bilaterally, no rhonchi, no rales, no wheezing, and no accessory muscle usage. Abdominal: soft, nontender to palpation, no guarding, no appreciable organomegaly Ext: ROM intact. No gross muscle atrophy, no edema, no contractures Neuro: Speech clear, face symmetrical and CN II-XII grossly intact with no noted focal neuro deficits Psych: Alert and oriented to person, place, time, and situation. Appropriate and pleasant affect. Assessment and Plan of Care: Acute postoperative blood loss anemia, expected finding and stable -CBC showing stable postoperative blood loss anemia with hemoglobin of 12.6 with preoperative hemoglobin of 14.9. -Hemoglobin stable at this time no need for further interventions or testing at this time,no active signs of bleeding. Status post L5 kyphoplasty with biopsy CAD status post CABG and permanent pacemaker placement Hypertension Hyperlipidemia Hypothyroidism Chronic heart failure -Patient to continue daily medication regimen with aspirin 81 mg daily, isosorbide mononitrate 30 mg daily, metoprolol 12.5 mg twice daily, and amiodarone 200 mg twice daily Type II [id number]-[id number] diabetes mellitus. -Hold Jardiance and place patient on glycemic protocol with NovoLog sliding scale to maintain tight glycemic control throughout hospitalization. Data review: Postoperative labs reviewed. CBC showing stable postoperative blood loss anemia with hemoglobin of 12.6 with preoperative hemoglobin of 14.9. BMP pending. Vital signs reviewed and stable. Blood pressure 106/62, heart rate 61, respiratory rate 18, temperature 90.3F, SpO2 of 97% on room air. Thank you for allowing us to participate in the care of this pleasant patient. Do not hesitate to contact us with questions. Someone can be reached from the [facility] hospitalist group all hours of the day at [phone] or via [employer]. Patient was seen independently by Nurse Pracitioner. This document was prepared using [employer] dictation software. Please allow for errors in water pollution scientist, while rare they do occur. Objective - Vital Signs Vital signs: Vital Signs Temp 97.7 F 11/07/22 00:05 Pulse 58 L 11/07/22 00:05 Resp 18 11/07/22 00:05 BP 103/61 11/07/22 00:05 Pulse Ox 97 11/07/22 07:59 FiO2 Intake & Output 11/06/22 11/07/22 11/07/22 18:59 06:59 18:59 Intake Total 1650 Output Total 2 Balance 1648 Weight 87 kg 87 kg Intake: IV 1650 Output: Estimated Blood Loss 2 Other: Voiding Method Toilet - Labs CBC & Chem 7: 11/07/22 05:51 11/07/22 05:51 Labs: Abnormal Lab Results - Last 24 Hours (Table) 11/07/22 Range/Units 08:39 POC Glucose (mg/dL) 138 H (70-110) mg/dL
== END 2022-11-07 13:06 | disposition home or self-care (01) ==
LOC: OR 12:57 → 4SSUR 15:53 → OR 11-07 13:06
PROVIDERS: ATTEND Orthopaedic Surgery
DX: S32.050A Wedge compression fracture of fifth lumbar vertebra, initial encounter for closed fracture (principal); I25.10 Atherosclerotic heart disease of native coronary artery without angina pectoris; G89.29 Other chronic pain; I11.0 Hypertensive heart disease with heart failure; E78.5 Hyperlipidemia, unspecified; E07.9 Disorder of thyroid, unspecified; X58.XXXA Exposure to other specified factors, initial encounter; Z86.59 Personal history of other mental and behavioral disorders; Z95.2 Presence of prosthetic heart valve; Z95.0 Presence of cardiac pacemaker; Z87.891 Personal history of nicotine dependence; Z79.82 Long term (current) use of aspirin; Z79.890 Hormone replacement therapy; Z79.51 Long term (current) use of inhaled steroids
CPT/HCPCS: 84132; 72100; 22514; 20225; J0690; Q9966; J0665; 80053; 85025; 94760